=== PATIENT | female | born 1970 | race Caucasian/White ===

== ENCOUNTER 2017-01-18 16:20 | Emergency (ER) | payer OTHER ==
--- NOTE | 2017-01-18 16:25 | UC ---
Headache HPI - HPI Summary HPI Summary: 46 YEAR OLD FEMALE PRESENTS WITH COMPLAINS OF WORSENING MIGRAINE HEADACHE. - History Of Current Complaint Stated Complaint: HEADACHE/NAUSEA Time Seen by Provider: 01/18/17 16:24 - Allergies/Home Medications Allergies/Adverse Reactions: Allergies Allergy/AdvReac Type Severity Reaction Status Date / Time No Known Allergies Allergy Verified 01/18/17 16:28 Home Medications: Home Medications Albuterol HFA INHALER* [Ventolin HFA Inhaler*] 1 puff INH Q4H PRN 01/18/17 [ History Confirmed 01/18/17] Sumatriptan [Imitrex] 20 mg NA 01/18/17 [History] PMH/Surg Hx/FS Hx/Imm Hx Previously Healthy: Yes Review of Systems Constitutional: Negative Skin: Negative Eyes: Negative ENT: Negative Respiratory: Negative Cardiovascular: Negative Gastrointestinal: Negative Genitourinary: Negative Motor: Negative Neurovascular: Negative Musculoskeletal: Negative Neurological: Headache Psychological: Negative All Other Systems Reviewed And Are Negative: Yes Physical Exam Triage Information Reviewed: Yes Appearance: Ill-Appearing, Pain Distress Eye Exam: Normal ENT Exam: Normal Dental Exam: Normal Neck exam: Normal Neck: Positive: 1 Respiratory Exam: Normal Cardiovascular Exam: Normal Abdominal Exam: Normal Musculoskeletal Exam: Normal Neurological Exam: Normal Psychological Exam: Normal Skin Exam: Normal Headache Course/Dx - Differential Dx/Diagnosis Provider Diagnoses: MIGRAINE HEADACHE Discharge - Discharge Plan Condition: Stable Disposition: HOME Prescriptions: Butalb/Acetamin/Caff TAB* [Fioricet TAB*] 1 tab PO Q6H PRN #12 tab MDD 4 PRN Reason: Headache Patient Education Materials: Acute Headache (ED), Acute Nausea and Vomiting (ED ) Referrals: No Primary Care Phys,NOPCP [Primary Care Provider] -
[2017-01-18 16:27] VITALS: BP 113/77
[2017-01-18] MEDS ORDERED: Ketorolac INJ* 30 MG/ML 1 ML VIAL IM ONE (16:33)
[2017-01-18] MEDS ORDERED: Promethazine TAB* 25 MG PO ONE (16:35)
== END 2017-01-18 17:25 | disposition home or self-care (01) ==
LOC: UCEAST 16:20
DX: G43.909 Migraine, unspecified, not intractable, without status migrainosus (principal)
CPT/HCPCS: 96372; 99202; G0463; J1885